=== PATIENT | female | born 1960 | race Caucasian/White ===

== ENCOUNTER → 2017-09-07 | Emergency (ER) | payer MEDICAID ==
[~2017-09-07] VITALS: Ht 167.6 cm; Wt 45.4 kg
[~2017-09-07] MED LIST: ADVAIR 250-501 EACH INH; ALBUTEROL2.5 MG/3 M INH; CITALOPRAM HBR20 MG PO; CLEOCIN HCL300 MG PO; CYCLOBENZAPRINE10 MG PO; KETOROLAC TROME10 MG PO; LAMICTAL25 MG PO; PREDNISONE10 MG PO; REXULTI0.5 MG PO; STRATTERA25 MG PO; VENTOLIN HFA18 GM INH
== END ==
LOC: ED 03:08
DX: S02.2XXA Fracture of nasal bones, initial encounter for closed fracture (principal); M25.531 Pain in right wrist; J44.9 Chronic obstructive pulmonary disease, unspecified; F17.200 Nicotine dependence, unspecified, uncomplicated; Z88.5 Allergy status to narcotic agent; Z79.899 Other long term (current) drug therapy; W19.XXXA Unspecified fall, initial encounter; W22.8XXA Striking against or struck by other objects, initial encounter
CPT/HCPCS: 70160; 73110; 99283

== ENCOUNTER 2018-05-18 10:21 | Emergency (ER) | payer MEDICAID ==
[~2018-05-18] VITALS: Ht 167.6 cm; Wt 45.4 kg
[2018-05-18] MEDS ORDERED: SEROQUEL300 MG PO (10:35)
--- OUTSIDE RECORDS SUMMARY | 2018-05-18 11:50 | XMS ---
PreManage Notification: KRIS DANIEL [employer] Events No recent Security Events currently on file CRITERIA MET - 6 ED Visits in 6 Months CARE PROVIDERS BRADY SAM [facility] Current PHONE: [phone] BUTCH LEAL Nurse Practitioner: Family [facility] PHONE: Unknown Hollie MOREAU, Primary Care 02/05/2018-Current Raina Viera PHONE: Unknown Bartolo MOREAU Primary Care 01/13/2018-Current Roselia Iqbal PHONE: Unknown [facility]: [facility] PHONE: Unknown [facility] Primary [facility] Current ADMINISTRATION PHONE: Unknown Keily has no Care Guidelines for this patient. [facility]DDevora VISIT COUNT (12 MO.) 1 [facility] TOTAL 9 NOTE: Visits indicate total known visits. ED/UCC VISIT TRACKING (12 MO.) 05/18/2018 10:22 [facility] [place] TYPE: Emergency COMPLAINT: - [facility]IDAL [facility] DIAGNOSES: - Poisoning - Diarrhea, unspecified - Delusional disorders - Unspecified abdominal pain - Other chronic pain 04/01/2018 15:[facility] DIAGNOSES: - Chest Pain - Other chest pain - Shortness of breath - Chronic obstructive pulmonary disease with (acute) exacerbation - Shortness of Breath 03/20/2018 12:51 [facility] TYPE: Urgent Care DIAGNOSES: - Pain, unspecified - Fever, unspecified - Chronic obstructive pulmonary disease, unspecified - Dysuria - Urinary tract infection, site not specified - Other viral agents as the cause of diseases classified elsewhere - Acute upper respiratory infection, unspecified - URI - Chronic obstructive pulmonary disease with (acute) exacerbation - Urinary Tract Infection [facility]05[facility]2018 [facility] DIAGNOSES: - Mental Health Evaluation - Nonpsychotic mental disorder, unspecified 02/04/2018 19:52 [facility] DIAGNOSES: - Panic Attack - Chest pain, unspecified - Chest Pain - Hypokalemia - Panic disorder [episodic paroxysmal anxiety] 02/04/2018 11:16 [facility] DIAGNOSES: - Mental Health Evaluation - poss allergic reaction - Other injury of unspecified body region, initial encounter - Glossodynia - Mouth Lesions - Nonpsychotic mental disorder, unspecified 02/02/2018 14:37 [facility]gent [facility] TYPE: Urgent Care DIAGNOSES: - Follow-up - Strain of other muscles, fascia and tendons at shoulder and upper arm level, right arm, subsequent encounter [facility]2018 [facility] Care DIAGNOSES: - Strain of unspecified muscle and tendon at ankle and foot level, right foot, initial encounter - Foot Pain 01/22/2018 22:23 [facility] DIAGNOSES: - Strain of unspecified muscle, fascia and tendon at shoulder and upper arm level, right arm, initial encounter - Insomnia, unspecified - difficulty sleeping/ hx bipolar - Shoulder Pain - Insomnia 01/22/2018 13:47 [facility] [place] TYPE: Urgent Care DIAGNOSES: - Shoulder Pain - Strain of unspecified muscle, fascia and tendon at shoulder and upper arm level, right arm, initial encounter 09/07/2017 03:10 [facility] TYPE: Emergency COMPLAINT: - FALL/INTOXICATED DIAGNOSES: - Unspecified fall, initial encounter - Chronic obstructive pulmonary disease, unspecified - Other usp (current) drug therapy - Striking against or struck by other objects, initial encounter - Allergy status to narcotic agent status - Nicotine dependence, unspecified, uncomplicated - Fracture of nasal bones, initial encounter for closed fracture - Nausea with vomiting, unspecified - Pain in right wrist 09/05/2017 12:18 [facility] TYPE: Urgent Care DIAGNOSES: - Chronic obstructive pulmonary disease, unspecified - Cough - Chronic obstructive pulmonary disease with (acute) exacerbation 06/22/2017 21:28 [facility] TYPE: Emergency DIAGNOSES: 79730. Chest pain; Shorness of breath 52602. Generalized abdominal pain 17677. Other chest pain INPATIENT VISIT TRACKING (12 MO.) No inpatient visits to display in this time frame [email or web address]
[2018-05-18] MEDS ORDERED: KEFLEX500 MG PO (19:38)
== END 2018-05-19 09:02 | disposition home or self-care (01) ==
LOC: ED 10:21
DX: F10.10 Alcohol abuse, uncomplicated (principal); Y90.7 Blood alcohol level of 200-239 mg/100 ml; R45.851 Suicidal ideations; N39.0 Urinary tract infection, site not specified; J44.9 Chronic obstructive pulmonary disease, unspecified; F17.200 Nicotine dependence, unspecified, uncomplicated; Z88.5 Allergy status to narcotic agent; Z79.899 Other long term (current) drug therapy; Z79.52 Long term (current) use of systemic steroids
CPT/HCPCS: 80053; 80176; 81001; 84443; 85025; 87077; 87088; 87186; 99285; G0480